=== PATIENT | female | born 1960 | race Caucasian/White ===

== ENCOUNTER 2021-08-14 12:30 | Emergency (ER) | payer OTHER ==
[~2021-08-14] VITALS: Ht 177.8 cm; Wt 61.4 kg
[2021-08-14 13:47] LABS: URINE APPEARANCE HAZY; URINE COLOR YELLOW
[2021-08-14 13:48] LABS: URINE BILIRUBIN 1+ (NEGATIVE); URINE BLOOD NEGATIVE (NEGATIVE); URINE GLUCOSE NEGATIVE (NEGATIVE); URINE KETONE 3+ (NEGATIVE); URINE LEUKOCYTE ESTERASE NEGATIVE (NEGATIVE); URINE MUCUS PRESENT (NOT PRESENT); URINE NITRATE NEGATIVE (NEGATIVE); URINE PROTEIN(semi-quant) 2+ mg/dL (NEGATIVE); URINE UROBILINOGEN NORMAL (NORMAL); URINE WBC 0-1 /hpf (0-3)
[2021-08-14] MEDS ORDERED: NORCO 325 MG-51 TA1 PO (15:54)
[2021-08-14 16:20] VITALS: BP 140/93
[2021-08-14] MEDS ORDERED: ELIQUIS5 MG PO (18:04)
[2021-08-14] MEDS ORDERED: ESCITALOPRAM10 MG PO (18:04)
[2021-08-14] MEDS ORDERED: RISPERIDONE0.5 M2 PO (18:04)
[2021-08-14] MEDS ORDERED: FOLIC ACID1 MG PO (18:05)
[2021-08-14] MEDS ORDERED: LEVOTHYROXINE0.05 MG PO (18:05)
[2021-08-14] MEDS ORDERED: B COMPLEX1 EACH PO (18:05)
[2021-08-14] MEDS ORDERED: PANTOPRAZOLE SO40 MG PO (18:05)
[2021-08-14] MEDS ORDERED: DAILY VALUE1 EACH PO (18:06)
[2021-08-14] MEDS ORDERED: CALTRATE 600 +1 TAB PO (18:06)
== END 2021-08-14 16:20 | disposition home or self-care (01) ==
LOC: ED 12:30
PROVIDERS: Physician Assistant
DX: S32.501A Unspecified fracture of right pubis, initial encounter for closed fracture (principal); Z87.891 Personal history of nicotine dependence; X58.XXXA Exposure to other specified factors, initial encounter

== ENCOUNTER 2022-04-16 16:41 | Emergency (ER) | payer OTHER ==
[~2022-04-16] VITALS: Ht 177.8 cm; Wt 64.5 kg
[~2022-04-16 16:41] MED LIST: B COMPLEX1 EACH PO; CALTRATE 600 +1 TAB PO; DAILY VALUE1 EACH PO; ELIQUIS5 MG PO; ESCITALOPRAM10 MG PO; FOLIC ACID1 MG PO; LEVOTHYROXINE0.05 MG PO; NORCO 325 MG-51 TA1 PO; PANTOPRAZOLE SO40 MG PO; RISPERIDONE0.5 M2 PO
[2022-04-16 17:11] LABS: BASO # 0.04 K/mm3 (0.02-0.10); EOS # 0.01 K/mm3 (0.04-0.40); EOS % 0.1 % (1.0-5.0); HEMATOCRIT 35.3 % (37.0-47.0); HEMOGLOBIN 11.2 g/dL (12.5-16.0); MEAN CELL VOLUME 90 fl (78-100); MEAN CORPUSCULAR HEMOGLOBIN 29 pg (27-31); MEAN CORPUSCULAR HGB CONC 32 g/dL (33-37); MEAN PLATELET VOLUME 10.7 fl (7.4-10.4); MONO # 2.08 K/mm3 (0.20-0.80); NEU # 10.41 K/mm3 (1.40-6.50); PLATELET COUNT 508 K/mm3 (130-400); RED BLOOD COUNT 3.91 M/mm3 (4.10-5.30); RED CELL DISTRIBUTION WIDTH 18.3 % (11.5-14.5); WHITE BLOOD COUNT 14.9 K/mm3 (4.8-10.8)
[2022-04-16 17:24] LABS: ALBUMIN 3.2 g/dL (3.4-4.8); POTASSIUM 3.7 mmol/L (3.5-5.1)
[2022-04-16 17:27] LABS: TOTAL PROTEIN 7.2 g/dL (6.2-8.1)
[2022-04-16 17:29] LABS: TOTAL BILIRUBIN 1.5 mg/dL (0.2-1.2)
[2022-04-16] MEDS ORDERED: GOOD SENSE ASPI81 M1 PO (17:40)
[2022-04-16 18:24] LABS: URINE APPEARANCE CLOUDY; URINE COLOR AMBER
[2022-04-16 18:25] LABS: URINE BILIRUBIN 2+ (NEGATIVE); URINE BLOOD 50 ery/uL (NEGATIVE); URINE GLUCOSE NEGATIVE (NEGATIVE); URINE KETONE TR (NEGATIVE); URINE LEUKOCYTE ESTERASE 2+ (NEGATIVE); URINE NITRATE POSITIVE (NEGATIVE); URINE PROTEIN(semi-quant) 1+ (NEGATIVE); URINE UROBILINOGEN 4 mg/dL (NORMAL); URINE WBC 31-50 /hpf (0-3)
[2022-04-16 18:48] VITALS: BP 120/77
== END 2022-04-16 19:11 | disposition short-term general hospital (02) ==
LOC: ED 16:41
PROVIDERS: Physician Assistant
DX: S72.142A Displaced intertrochanteric fracture of left femur, initial encounter for closed fracture (principal); N39.0 Urinary tract infection, site not specified; W01.0XXA Fall on same level from slipping, tripping and stumbling without subsequent striking against object, initial encounter
CPT/HCPCS: J0696; J3010; J7030

== ENCOUNTER 2022-04-23 14:24 | Inpatient (IN) | payer OTHER ==
[~2022-04-23] VITALS: Ht 177.8 cm; Wt 70.2 kg
[~2022-04-23 14:24] MED LIST changes: +GOOD SENSE ASPI81 M1 PO
[2022-04-23] MEDS ORDERED: ASPIRIN 32325 MG/TAB PO (15:24)
[2022-04-23] MEDS ORDERED: COLACE100 M1 PO (15:25)
[2022-04-23] MEDS ORDERED: DULCOLAX S10 MG/SUPP RC (15:25)
[2022-04-23] MEDS ORDERED: ACETAMINOPHEN-H1 TA2 PO (15:27)
[2022-04-23] MEDS ORDERED: FERROUS SULFAT325 M4 PO (15:28)
[2022-04-23 16:08] LABS: BASO # 0.06 K/mm3 (0.02-0.10); EOS # 0.06 K/mm3 (0.04-0.40); EOS % 0.6 % (1.0-5.0); HEMATOCRIT 32.3 % (37.0-47.0); HEMOGLOBIN 9.6 g/dL (12.5-16.0); LYMPH# 1.91 K/mm3 (1.50-4.00); MEAN CELL VOLUME 97 fl (78-100); MEAN CORPUSCULAR HEMOGLOBIN 29 pg (27-31); MEAN CORPUSCULAR HGB CONC 30 g/dL (33-37); MEAN PLATELET VOLUME 10.4 fl (7.4-10.4); MONO # 1.33 K/mm3 (0.20-0.80); NEU # 7.45 K/mm3 (1.40-6.50); PLATELET COUNT 639 K/mm3 (130-400); RED BLOOD COUNT 3.33 M/mm3 (4.10-5.30); RED CELL DISTRIBUTION WIDTH 19.3 % (11.5-14.5); WHITE BLOOD COUNT 10.9 K/mm3 (4.8-10.8)
[2022-04-23 16:15] LABS: ALBUMIN 2.7 g/dL (3.4-4.8)
[2022-04-23 16:16] LABS: CALCIUM 8.6 mg/dL (8.3-10.5)
[2022-04-23 16:19] LABS: TOTAL BILIRUBIN 0.9 mg/dL (0.2-1.2)
[2022-04-23 16:25] LABS: TOTAL PROTEIN 6.2 g/dL (6.2-8.1)
[2022-04-23 17:28] VITALS: BP 118/66
[2022-04-23 17:49] VITALS: BP 118/66
--- NOTE | 2022-04-23 19:30 | NUR ---
Report received from MARCE Fenton. Patient resting in bed. Assisted to bedside commode. Transfers with SBA. Complains of pain in L hip with movement. Ambulated well in room with no complaints of dizziness. Assisted back to bed. Call light in reach and bed alarm on. Patient states she will call when she would like a PRN pain medication.
--- NOTE | 2022-04-23 23:00 | NUR ---
Patient calls requesting PRN pain medication. [place] given. Patient denies any other needs at this time. Call light in reach, bed alarm on.
--- NOTE | 2022-04-24 05:00 | NUR ---
Patient awake in bed. States her pain in her left hip is returning. PRN pain medication given. Vitals checked at this time. Patient denies other needs. Call light in reach, bed alarm on.
[2022-04-24 06:18] VITALS: BP 121/74
--- NOTE | 2022-04-24 09:00 | NUR ---
Patient resting in bed. A&Ox4, RA, c/o pain in left hip, PRN given. Reports she did not sleep well last night. Requesting we lower the temp in the room tonight. Pleasant with staff. Swallowed pills whole with water. Bed in lowest and locked position. Call light within reach.
[2022-04-24 18:35] VITALS: BP 101/67
[2022-04-25 06:29] VITALS: BP 148/83
[2022-04-25 17:08] VITALS: BP 115/72
--- NOTE | 2022-04-25 17:26 | NUR ---
Report received from MARCE Amos at 1300 to resume care of patient. Pt restng in bed, did not want to eat lunch or supper in the chair, discussed plan starting in am tomorrow to eat all meals in chair and then minimize extra time in chair as pt states it is very uncomfortable for her to reamin in the recliner. 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 Pt recieiving PRN pain meds as needed q4hr per request. Will give report to nightshift nurse who will resume care.
--- NOTE | 2022-04-25 20:38 | NUR ---
Patient resting in bed watching TV. A&Ox4, RA, c/o dull, throbbing pain in left hip. Swallowed pills whole with water. Reports she's been up to the chair today for meals. Pleasant with staff. Bed in lowest and locked position. Call light within reach.
[2022-04-26 05:53] VITALS: BP 122/74
[2022-04-26 17:09] VITALS: BP 127/69
--- NOTE | 2022-04-26 20:00 | NUR ---
Patient resting in bed. She states, "I've been waiting 2 hours for my pain medication." Reports her pain an 8 out of 10 on a numeric pain scale. PRN given. Patient swallowed pills whole with water. Reports she did not sleep well last night and is eager to go to sleep now. A&Ox4, RA. Bed in lowest and locked position. Call light within reach.
[2022-04-27 06:21] VITALS: BP 145/67
--- NOTE | 2022-04-27 08:00 | NUR ---
Patient A&Ox4. Reports not sleeping well d/t pain to left leg. Reports most of her pain in located in her left knee rather than her hip. Reports current pain level of 7/10. Assessment compelted. 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 Took medications whole without issue. Needs met. Fall precautions in place.
[2022-04-27 16:14] VITALS: BP 123/73
--- NOTE | 2022-04-27 18:44 | NUR ---
Report given to CHAD Espinoza.
--- NOTE | 2022-04-27 19:43 | NUR ---
Report received from Bette ZHENG. Patient resting supine in bed watching TV. A/O x4. Rates pain to L hip 7/10 and L knee 5/10, Constant throbbing. Has ice pack in place. Assessment completed. 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 HS medications taken. Discussed analgesic schedule. Denies questions, wants or needs at this time.
--- NOTE | 2022-04-28 06:10 | NUR ---
Patient awake and on phone. AM medications taken without difficulty. Denies wants or needs at this time.
[2022-04-28 06:19] VITALS: BP 130/72
--- NOTE | 2022-04-28 06:53 | NUR ---
Report to Bette ZHENG.
--- NOTE | 2022-04-28 08:00 | NUR ---
Pt up in recliner for breakfast. Reports sleeping well last night. Reports 6/10 pain to left leg. PRN administered. Assessment compelted. 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 Needs met. Fall precautions in place.
[2022-04-28 18:21] VITALS: BP 122/82
--- NOTE | 2022-04-28 18:42 | NUR ---
Report given to CHAD Espinoza.
--- NOTE | 2022-04-28 20:29 | NUR ---
Report received from Bette ZHENG. Resting in bed, awakens easily for PM assessment and HS medications. Rates pain to L hip 6/10, L knee 4/10. 1 hour too early for analgesic and patient aware. Assessment completed. Offered and refused HS snack. Denies wants or needs.
--- NOTE | 2022-04-29 02:01 | NUR ---
Requests and given PO anagesic for L hip/knee pain 05/12. Denies further wants or needs.
--- NOTE | 2022-04-29 06:02 | NUR ---
Awake in bed watching TV. AM medications and PRN analgesic taken at this time. Pain level 6/10 to L hip/knee. Denies further wants or needs.
[2022-04-29 06:30] VITALS: BP 130/67
--- NOTE | 2022-04-29 07:25 | NUR ---
Report to Jossy ZHENG.
[2022-04-29 09:23] LABS: BASO # 0.09 K/mm3 (0.02-0.10); EOS # 0.24 K/mm3 (0.04-0.40); EOS % 1.7 % (1.0-5.0); HEMATOCRIT 32.4 % (37.0-47.0); HEMOGLOBIN 9.7 g/dL (12.5-16.0); LYMPH# 2.28 K/mm3 (1.50-4.00); MEAN CELL VOLUME 98 fl (78-100); MEAN CORPUSCULAR HEMOGLOBIN 29 pg (27-31); MEAN CORPUSCULAR HGB CONC 30 g/dL (33-37); MEAN PLATELET VOLUME 11.1 fl (7.4-10.4); MONO # 1.02 K/mm3 (0.20-0.80); NEU # 10.78 K/mm3 (1.40-6.50); PLATELET COUNT 823 K/mm3 (130-400); RED BLOOD COUNT 3.31 M/mm3 (4.10-5.30); RED CELL DISTRIBUTION WIDTH 18.3 % (11.5-14.5); WHITE BLOOD COUNT 14.5 K/mm3 (4.8-10.8)
[2022-04-29 09:28] LABS: ALBUMIN 2.9 g/dL (3.4-4.8); POTASSIUM 3.6 mmol/L (3.5-5.1)
[2022-04-29 09:30] LABS: CALCIUM 9.3 mg/dL (8.3-10.5)
[2022-04-29 09:31] LABS: TOTAL PROTEIN 6.5 g/dL (6.2-8.1)
[2022-04-29 09:33] LABS: TOTAL BILIRUBIN 0.6 mg/dL (0.2-1.2)
[2022-04-29 17:44] VITALS: BP 121/73
[2022-04-30 05:18] VITALS: BP 149/83
[2022-04-30 07:11] LABS: URINE APPEARANCE CLEAR; URINE BILIRUBIN NEGATIVE (NEGATIVE); URINE BLOOD NEGATIVE (NEGATIVE); URINE COLOR YELLOW; URINE GLUCOSE NEGATIVE (NEGATIVE); URINE KETONE NEGATIVE (NEGATIVE); URINE LEUKOCYTE ESTERASE NEGATIVE (NEGATIVE); URINE NITRATE NEGATIVE (NEGATIVE); URINE PROTEIN(semi-quant) NEGATIVE (NEGATIVE); URINE UROBILINOGEN NORMAL (NORMAL); URINE WBC 0-1 /hpf (0-3)
--- NOTE | 2022-04-30 17:36 | NUR ---
uploaded clinicals for review date of 05/01/22 in [facility]. Awaiting approval for more therapy days. asking for 10 more days.
[2022-04-30 18:06] VITALS: BP 135/78
--- NOTE | 2022-04-30 20:15 | NUR ---
Report received from Jossy ZHENG. Patient in bed watching TV and on phone. A/O x4. Rates pain to L hip 5/10. Ice to knee. Incision [place]. Assessment completed. Provided Diet coke per request. HS ASA taken. Analgesic schedule reviewed.
--- NOTE | 2022-05-01 06:13 | NUR ---
Rested well all shift. Medicated for pain PRN request. Ice PRN to LLE.
[2022-05-01 06:24] VITALS: BP 135/80
--- NOTE | 2022-05-01 07:08 | NUR ---
Report to Ирина ZHENG.
--- NOTE | 2022-05-01 10:00 | NUR ---
Assessment charted. Pt in chair at side of bed resting, doing well, PRN pain meds given this am with morning meds and then again 1 hour later for pain in L hip at 5. Asked therapy for recommendation on room privelages, they state it is not appropriate at this time. Pt in chair for meals and back to bed afterwards, wants to shower after lunch today. Will continue to monitor.
--- NOTE | 2022-05-01 16:33 | NUR ---
Gave [facility] [employer] information regarding home health to Celia. She will review. Prior hip fracture Celia had [facility]. She would prefer them again or if physically able she would like to go to the Out Patient therapy in [facility].
[2022-05-01 17:29] VITALS: BP 113/69
--- NOTE | 2022-05-01 18:28 | NUR ---
Pt in bed resting, had visitor this afternoon, denies needs, will give report to nightshift nurse who will resume care.
--- NOTE | 2022-05-01 20:05 | NUR ---
Report received from Ирина ZHENG. Patient requests "another pain pill". This nurse in room and explained new analgesic order. Tylenol offered and accepted. Ice bag applied. Assessment completed. Incision W/A. Denies further wants or needs.
--- NOTE | 2022-05-02 00:34 | NUR ---
Up to BR, voided 1000 ML of urine and had large SF BM.
[2022-05-02 06:09] VITALS: BP 144/73
--- NOTE | 2022-05-02 06:51 | NUR ---
Report to Bette ZHENG.
[2022-05-02 16:17] VITALS: BP 127/77
--- NOTE | 2022-05-02 19:38 | NUR ---
Report received from Bette ZHENG. Patient requests analgesic for L hip/knee pain 03/12. Medication administered. Assessment completed. L hip incisions W/A x3 with 2 SS to distal incision. Calls for wants and needs.
--- NOTE | 2022-05-03 04:10 | NUR ---
Rests off and on. Calls for analgesic about Q 4 hours. All AM medications taken now, patient states going to try and get some rest.
[2022-05-03 06:19] VITALS: BP 149/73
--- NOTE | 2022-05-03 07:03 | NUR ---
Report to Bette ZHENG.
--- NOTE | 2022-05-03 09:01 | NUR ---
Insurance approved until May 09, Notified patient and SWB team.
[2022-05-03 18:13] VITALS: BP 101/64
--- NOTE | 2022-05-03 19:00 | NUR ---
Report received from Bette ZHENG.
--- NOTE | 2022-05-03 21:25 | NUR ---
Patient resting in bed watching TV. Alert and oriented x 4. HS meds along with norco for pain reviewed and given. BLE elevated on pillow. Right heel reddened and skin dry slightly peeling and floated. Does IS with good effort and pulls 1500.
--- NOTE | 2022-05-04 02:49 | NUR ---
Patient awake and called for pain med for pain right hip 6/10 on pain scale. [place] 1 tab given and ice pack applied. Has some swelling to upper hip incision but no redness or drainage. Up to the bathroom standby assist with walker, gait steady and voids then back to bed. Reports she's been sleeping well.
--- NOTE | 2022-05-04 05:54 | NUR ---
Patient resting in bed awake. States "Pain tolerable" this am. Denies needs. AM meds reviewed and given.
[2022-05-04 06:07] VITALS: BP 123/67
--- NOTE | 2022-05-04 07:00 | NUR ---
REPORT RECEIVED FROM MARCE HUTSON.
--- NOTE | 2022-05-04 07:30 | NUR ---
PATIENT SITTING UP IN BED, WITH TV ON. STATES PAIN IN LEFT HIP IS 6/10 AND WOULD LIKE "PAIN PILL". PRN ANALGESIC GIVEN AT THIS KAVEH. PATIENT OFFERS NO OTHER NEEDS OR COMPLAINTS AT THIS TIME. BED IN LOWEST LOCKED POSTION, ALARM ON, CALL LIGHT WITHIN REACH.
--- NOTE | 2022-05-04 08:30 | NUR ---
PATIENT PLEASENT AND COOPERATIVE WITH CARES. UP TO CHAIR FOR MORNING MEAL. A&OX4, STATES PAIN IN THE LEFT HIP, RADIATES TO LEFT KNEE 5/10. INCISIONS X3 TO LEFT HIP/KNEE AREA NOTED, OPEN TO AIR, EDGES WELL APPROXIMATED. GENERALIZED SWELLING NOTED. PATIENT STATES DID NOT REST WELL THROUGH THE NIGHT AND "LOOKING FOWARD TO A LAZY DAY." PATIENT OFFERS NO OTHER NEEDS OR COMPLAINTS AT THIS TIME. CHAIR LOCKED, ALARM ON, CALL LIGHT WITHIN REACH.
--- NOTE | 2022-05-04 13:00 | NUR ---
REPORT GIVEN TO MARCE FINNEY.
[2022-05-04 16:45] VITALS: BP 123/76
--- NOTE | 2022-05-04 19:00 | NUR ---
Report received from Letty ZHENG.
--- NOTE | 2022-05-04 21:00 | NUR ---
Patient rests in bed watching TV. States she's has napped off and on during the day. HS med along with norco for pain reviewed and given. Ambulates in hallway with BELT SANDER STONE and walker. Gait steady. Refuses SCD's. Jan hose off at this time. States she wears them during the day. Heels floated.
[2022-05-05 05:20] VITALS: BP 125/71
--- NOTE | 2022-05-05 06:04 | NUR ---
Patient awake states she dozed off and on through the night. [place] given for right hip pain 6/10 on pain scale.
--- NOTE | 2022-05-05 07:00 | NUR ---
REPORT RECEIVED FROM MARCE HUTSON.
--- NOTE | 2022-05-05 08:25 | NUR ---
PATIENT PLEASENT AND COOPERATIVE WITH CARES, A&OX4. UP TO CHAIR FOR MORNING MEAL. PATIENT C/O OF PAIN IN LEFT HIP /, RADIATES TO LEFT KNEE. ICE APPLIED REQUESTED BY PATIENT. PATIENT OFFERS NO OTHER NEEDS OR COMPLAINTS AT THIS TIME. CHAIR ALARM, ON. CALL LIGHT WITHIN REACH.
--- NOTE | 2022-05-05 12:45 | NUR ---
REPORT GIVEN TO MARCE CARMONA.
--- NOTE | 2022-05-05 14:27 | NUR ---
Pt ambulates in renteria using walker w/ SBA from UI DEVELOPER. Gait steady. Ambulates approx 150 ft and rest briefly and returns to room. Rates pain of left hip 03/12 and given norco 1 tab. Pt planning on showering at his time. UI DEVELOPER remains in room w/ pt.
--- NOTE | 2022-05-05 16:45 | NUR ---
Pt states that pain med takes the edge off. Ice pack placed to left hip for discomfort.
[2022-05-05 16:55] VITALS: BP 129/79
--- NOTE | 2022-05-05 19:00 | NUR ---
Report received from Maddy ZHENG. Patient reports left hip pain 7/10 on pain scale and norco 1 tab given po. Rests in bed watching TV.
--- NOTE | 2022-05-05 22:15 | NUR ---
Patient had urinary urgency and urinary incontinence. Up to the bathroom and back to bed. Changes own clothing.
[2022-05-06 05:55] VITALS: BP 138/79
--- NOTE | 2022-05-06 10:01 | NUR ---
resting quietly watching tv
--- NOTE | 2022-05-06 11:25 | NUR ---
WATCHING TV AND TALKING ON PHONE
--- NOTE | 2022-05-06 14:02 | NUR ---
watching tv denies needs or discomfort
--- NOTE | 2022-05-06 15:44 | NUR ---
RESTING WATCHING TV
[2022-05-06 17:29] VITALS: BP 117/76
--- NOTE | 2022-05-06 19:55 | NUR ---
Report received from Isabel ZHENG. Patient rings call light for assist to BR. Up and out of bed on own. Ambulates with SBA and walker to BR. Urine dark and cloudy, had sm soft BM. Requests analgesic for pain 5/10 to L hip/knee also states she thinks she is getting "another UTI". Assessment completed. HS medications and PRN [place] taken. Will report urinary sx to provider.
--- NOTE | 2022-05-07 02:20 | NUR ---
Rings call light. Incontinent of urine. LOSS PREVENTION DETECTIVE in to assist with cares. Awaiting UA.
--- NOTE | 2022-05-07 05:05 | NUR ---
Clean catch UA obtained and taken to the lab by TANYA. Urine yellow and cloudy in appearance.
[2022-05-07 05:46] VITALS: BP 119/77
[2022-05-07 06:38] LABS: PH-URINE 6.5 (5.0 - 8.0); URINE APPEARANCE CLOUDY; URINE BILIRUBIN 1+ (NEGATIVE); URINE COLOR YELLOW; URINE GLUCOSE NEGATIVE (NEGATIVE); URINE KETONE NEGATIVE (NEGATIVE); URINE NITRATE NEGATIVE (NEGATIVE); URINE PROTEIN(semi-quant) TRACE (NEGATIVE); URINE UROBILINOGEN NORMAL (NORMAL)
[2022-05-07 06:39] LABS: URINE BLOOD TRACE (NEGATIVE); URINE LEUKOCYTE ESTERASE 2+ (NEGATIVE); URINE WBC >50 /hpf (0-3)
--- NOTE | 2022-05-07 07:24 | NUR ---
Report to Jossy ZHENG.
[2022-05-07 11:54] LABS: BASO # 0.05 K/mm3 (0.02-0.10); EOS # 0.36 K/mm3 (0.04-0.40); EOS % 2.5 % (1.0-5.0); HEMATOCRIT 30.3 % (37.0-47.0); HEMOGLOBIN 9.2 g/dL (12.5-16.0); LYMPH# 1.98 K/mm3 (1.50-4.00); MEAN CELL VOLUME 95 fl (78-100); MEAN CORPUSCULAR HEMOGLOBIN 29 pg (27-31); MEAN CORPUSCULAR HGB CONC 30 g/dL (33-37); MEAN PLATELET VOLUME 10.4 fl (7.4-10.4); MONO # 1.29 K/mm3 (0.20-0.80); NEU # 10.47 K/mm3 (1.40-6.50); PLATELET COUNT 790 K/mm3 (130-400); RED BLOOD COUNT 3.19 M/mm3 (4.10-5.30); RED CELL DISTRIBUTION WIDTH 16.9 % (11.5-14.5); WHITE BLOOD COUNT 14.2 K/mm3 (4.8-10.8)
[2022-05-07 12:11] LABS: ALBUMIN 2.9 g/dL (3.4-4.8)
[2022-05-07 12:12] LABS: POTASSIUM 3.7 mmol/L (3.5-5.1)
[2022-05-07 12:13] LABS: CALCIUM 8.8 mg/dL (8.3-10.5)
[2022-05-07 12:14] LABS: TOTAL PROTEIN 6.5 g/dL (6.2-8.1)
[2022-05-07 12:16] LABS: TOTAL BILIRUBIN 0.3 mg/dL (0.2-1.2)
[2022-05-07 17:48] VITALS: BP 121/72; BP 212/72
--- NOTE | 2022-05-07 20:10 | NUR ---
Report received from Jossy ZHENG. Patient call for assist to BR then request analgesic for L hip pain 04/12. [place] and scheduled ASA taken at this time. Patient up with SBA, steady gait. Assessment completed. Denies wants or needs at this time.
--- NOTE | 2022-05-08 00:52 | NUR ---
Report to eYimy ZHENG.
[2022-05-08 06:00] VITALS: BP 114/66
--- NOTE | 2022-05-08 09:36 | NUR ---
Pt resting comfortably in bed. Denies any needs at this time. Rates left hip pain at 5/10, and left knee pain at 2/10. Understands that her next pain pill is due at 1015. JANETH hose off at this time - states she will put them on this afternoon.
--- NOTE | 2022-05-08 10:25 | NUR ---
Clinicals Faxed to [facility]
--- NOTE | 2022-05-08 10:59 | NUR ---
Pt was given [place] for left hip pain at 1000 when she was working with therapy. Rated pain at 7/10. Resting back in bed at this time. Rates pain at 5/10.
--- NOTE | 2022-05-08 11:13 | NUR ---
Report given to Meek Gordon RN
--- NOTE | 2022-05-08 12:14 | NUR ---
Called [facility] advised them Celia would be going home tomorrow likely in the afternoon. She would like to start services on Friday at her aunts house in [place]. Advised to call celia with time and address.
--- NOTE | 2022-05-08 12:29 | NUR ---
Received a phone call from [facility]. Will fax tomorrows d/c instructions to her upon discharge.
[2022-05-08 17:39] VITALS: BP 130/75
--- NOTE | 2022-05-08 18:27 | NUR ---
Pt has done well today, resting in bed between meals, feeling well, states she is discharging tomorrow and looking forward to it. Denies needs, PRN pain meds given per request. Will give report to nightshift nurse who will resume care.
--- NOTE | 2022-05-08 20:30 | NUR ---
New order received from Pearl COCHRAN that patient may be independent in room. Reviewed with patient and safety reminders given. HS med along with norco for left hip pain reviewed and given. Watches TV and denies further needs.
[2022-05-09 05:57] VITALS: BP 134/81
--- NOTE | 2022-05-09 06:23 | NUR ---
Patient awake watching TV. Reports "slept a little" this noc.
--- NOTE | 2022-05-09 07:24 | NUR ---
Received report from MARCE Vasquez. Pt received last [place] around 0545. Reassessment at 0720 pt stated that the pain to the left hip was 5/10 and left knee was a 2/10. Otherwise no complaints. Pt requests diet soda with ice. Remains in bed at this time. Aware of being discharged today awaiting finalization of a ride to home.
[2022-05-09] MEDS ORDERED: CEFDINIR300 MG PO ×2 (09:28→09:30)
[2022-05-09] MEDS ORDERED: NORCO 325 MG-51 TA1 PO (09:30)
--- NOTE | 2022-05-09 10:15 | NUR ---
Pt received her PRN [place] as requested by patient before discharge. Pt received discharge instructions with present to also listen in. Pt has no further complaints and was taken per WC to driveway where pt was assited into husbands truck and secured with seat belt. All belongings were given to .
--- NOTE | 2022-05-09 10:35 | NUR ---
FAXED D/C INSTRUCTIONS TO [facility].
== END 2022-05-09 10:03 | disposition home health service (06) | DRG 560 ==
LOC: MED/SURG 14:24
PROVIDERS: Internal Medicine; Physician Assistant; ADMIT Physician Assistant
DX: S72.142D Displaced intertrochanteric fracture of left femur, subsequent encounter for closed fracture with routine healing (principal); N39.0 Urinary tract infection, site not specified; D64.9 Anemia, unspecified; F32.A Depression, unspecified; F10.10 Alcohol abuse, uncomplicated; W18.30XD Fall on same level, unspecified, subsequent encounter; Z79.82 Long term (current) use of aspirin; Z79.891 Long term (current) use of opiate analgesic; Z79.890 Hormone replacement therapy; Z86.711 Personal history of pulmonary embolism; Z87.891 Personal history of nicotine dependence
CPT/HCPCS: J0696